=== PATIENT | female | born 1990 | race Caucasian/White ===

== ENCOUNTER 2016-05-11 20:33 | Emergency (ER) | payer SELFPAY ==
[~2016-05-11] VITALS: Ht 160 cm; Wt 69.8 kg
[2016-05-11 22:42] VITALS: BP 133/86
== END 2016-05-11 22:43 | disposition home or self-care (01) ==
LOC: ED 20:33
DX: K04.7 Periapical abscess without sinus (principal)

== ENCOUNTER 2017-04-06 22:57 | Emergency (ER) | payer SELFPAY ==
[~2017-04-06] VITALS: Ht 160 cm; Wt 88.5 kg
[2017-04-06 23:11] VITALS: BP 122/67; Ht 160 cm; Wt 88.5 kg
== END 2017-04-07 00:48 | disposition home or self-care (01) ==
LOC: ED 22:57
DX: N39.0 Urinary tract infection, site not specified (principal); R10.30 Lower abdominal pain, unspecified; Z88.6 Allergy status to analgesic agent; Z88.9 Allergy status to unspecified drugs, medicaments and biological substances
CPT/HCPCS: J0696; J0780; J2270

== ENCOUNTER 2017-04-11 08:16 | Emergency (ER) | payer MEDICAID ==
[~2017-04-11] VITALS: Ht 160 cm; Wt 88.5 kg
[2017-04-11 08:46] VITALS: Ht 160 cm; Wt 88.5 kg
[2017-04-11 11:39] LABS: CALCIUM 9.1 mg/dL (8.5-10.1); CARBON DIOXIDE 26.7 mmol/L (21-32); CHLORIDE SERUM 101 mmol/L (98-107); CREATININE SERUM 0.9 mg/dL (0.6-1.0); GFR1 > 60 mL/min; GLUCOSE SERUM 96 mg/dL (74-106); POTASSIUM SERUM 3.6 mmol/L (3.5-5.1); SODIUM SERUM 139 mmol/L (136-145)
[2017-04-11 11:43] LABS: ALKALINE PHOSPHATASE 114 U/L (46-116); ALT/SGPT 62 U/L (14-59); AST/SGOT 30 U/L (15-37); BILIRUBIN TOTAL 0.7 mg/dL (0.20-1.00); LIPASE 88 IU/L (73-393); TOTAL PROTEIN, SERUM 7.8 g/dL (6.4-8.2)
[2017-04-11 11:44] LABS: AMYLASE 20 U/L (25-115)
[2017-04-11 11:45] LABS: BASOPHIL % 0.3 % (0-2); PLATELET COUNT 231 x10^3mcL (130-400); RED CELL DISTRIBUTION WIDTH 13.9 % (11.5-14.5)
[2017-04-11 12:46] VITALS: BP 133/97
== END 2017-04-11 14:27 | disposition home or self-care (01) ==
LOC: ED 08:16
PROVIDERS: Emergency Medicine
DX: R10.13 Epigastric pain (principal); Z88.8 Allergy status to other drugs, medicaments and biological substances
CPT/HCPCS: 83880; J2405; J3010; Q0092